=== PATIENT | female | born 1965 | race Caucasian/White ===

== ENCOUNTER → 2017-02-26 09:13 | Outpatient (CLI) | payer OTHER ==
[2015-05-18 16:42] VITALS: BMI 53.5
[~2017-02-26 09:13] MED LIST: ALDACTONE50 MG PO; ATROVENT 0.03%30 ML NS; BAYER ASPIRIN325 MG PO; BAYER CHEWABLE81 MG PO; BENZONATATE200 MG PO; CALCIUM 600+D T1 TA1 PO; COUMADIN5 MG PO; DIOVAN HCT 320/1 TA2 PO; FLUTICASONE PRO16 GM NASAL; IPRAT-ALBUT 0.5-3 ML INH; LACTINEX GRANUL1 PCK PO; LOVAZA1 G PO; LOVENOX30 MG/0.3 SQ; LYRICA100 MG PO; MUCINEX DM ER1 EAC1 PO; MULTI-DAY VITAM1 TAB PO; OXYCONTIN10 MG PO; PERCOCET 10/3251 TA1 PO; PERFOROMIS20 MCG/21 UPD; PREDNISONE20 MG PO; PROVIGIL200 MG PO; PULMICORT0.5 MG/21 UPD; ROBAXIN-750750 MG PO; SINGULAIR10 MG PO; SYNTHROID112 MCG PO; SYNTHROID125 MCG PO; SYNTHROID300 MCG PO; TRIGLIDE160 MG PO; VIBRAMYCIN 100100 MG PO
== END | disposition home or self-care (01) ==
LOC: D.RAD 09:13
DX: J45.909 Unspecified asthma, uncomplicated (principal)

== ENCOUNTER → 2017-08-27 13:27 | Outpatient (CLI) | payer OTHER ==
[2015-05-18 16:42] VITALS: BMI 53.5
== END | disposition home or self-care (01) ==
LOC: D.RT 13:27
DX: J45.909 Unspecified asthma, uncomplicated (principal)

== ENCOUNTER → 2018-07-03 19:14 | Outpatient (CLI) | payer OTHER ==
[2015-05-18 16:42] VITALS: BMI 53.5
== END | disposition home or self-care (01) ==
LOC: D.MAMMO 11:30
DX: Z12.31 Encounter for screening mammogram for malignant neoplasm of breast (principal)

== ENCOUNTER → 2018-07-31 16:37 | Outpatient (CLI) | payer OTHER ==
[2015-05-18 16:42] VITALS: BMI 53.5
== END | disposition home or self-care (01) ==
LOC: D.MAMMO 09:30 → D.US 08-01 11:00 → D.MAMMO 08-05 08:30
DX: R92.8 Other abnormal and inconclusive findings on diagnostic imaging of breast (principal)

== ENCOUNTER → 2018-11-28 09:36 | Outpatient (CLI) | payer OTHER ==
[2015-05-18 16:42] VITALS: BMI 53.5
== END | disposition home or self-care (01) ==
LOC: D.RT 09:36
DX: J45.909 Unspecified asthma, uncomplicated (principal); J84.9 Interstitial pulmonary disease, unspecified

== ENCOUNTER → 2019-01-02 23:51 | Outpatient (CLI) | payer OTHER ==
[2015-05-18 16:42] VITALS: BMI 53.5
== END | disposition home or self-care (01) ==
LOC: D.MAMMO 15:00
PROVIDERS: ATTEND Family Medicine
DX: R92.8 Other abnormal and inconclusive findings on diagnostic imaging of breast (principal)

== ENCOUNTER 2020-04-14 16:40 | Inpatient (IN) | payer MEDICARE, OTHER ==
[~2020-04-14] VITALS: Ht 165.1 cm; Wt 136.1 kg
[2020-06-15] MEDS ORDERED: SYNTHROID300 MCG PO (15:39)
[2020-06-15] MEDS ORDERED: MOBIC7.5 MG PO (15:40)
[2020-06-15] MEDS ORDERED: OXYBUTYNIN CHLOR5 MG PO (15:41)
[2020-06-15] MEDS ORDERED: VITAMIN D3 PO (15:41)
[2020-06-15] MEDS ORDERED: BENADRYL25 MG PO (15:42)
[2020-06-16 10:17] LABS: BASOPHILS 0.3 % (0-2); EOSINOPHILS 2.6 % (0-7); HEMATOCRIT 42.3 % (36.0-48.0); HEMOGLOBIN 13.8 g/dL (12-16); IMMATURE GRANULOCYTES 0.5 % (0-5); LYMPHOCYTES 32.9 % (15-50); MCH 28.5 pg (26.0-34.0); MCHC 32.6 g/dL (31.0-37.0); MCV 87.4 fL (80.0-100.0); MONOCYTES 7.7 % (2-11); RBC 4.84 10x6/uL (4.00-5.40); RDW 14.3 % (11.5-14.5); WBC 5.9 10x3/uL (4.8-10.8)
[2020-06-16 10:23] LABS: PLATELET COUNT 249 10x3/uL (130-400)
[2020-06-16 10:24] LABS: ANION GAP 11.2 mmol/L (8-16); APTT 29.1 SECONDS (22.8-39.4); CALCIUM 10.2 mg/dL (8.5-10.1); CARBON DIOXIDE 29.2 mmol/L (21.0-32.0); CREATININE - SERUM 0.9 mg/dL (0.6-1.3); INR 0.98 (0.85-1.17); POTASSIUM - SERUM 4.4 mmol/L (3.5-5.1)
[2020-06-16 13:08] LABS: BILIRUBIN NEGATIVE (NEGATIVE); KETONE NEGATIVE (NEGATIVE); NITRITE POSITIVE (NEGATIVE); UROBILINOGEN NORMAL (NORMAL)
[2020-06-16 13:09] LABS: BACTERIA MANY /hpf (NEGATIVE); EPITHELIAL CELLS OCC /hpf (0-5); RED CELLS - URINE RARE /hpf (0-5)
[2020-06-22] VITALS (11 sets, daily range): BP systolic 96–132; BP diastolic 50–74; BMI 48.6; BMI 50.0
[2020-06-22 08:52] LABS: BILIRUBIN NEGATIVE (NEGATIVE); KETONE NEGATIVE (NEGATIVE); NITRITE NEGATIVE (NEGATIVE); UROBILINOGEN NORMAL (NORMAL)
--- NOTE | 2020-06-22 09:33 | NUR ---
NERVE BLOCK WITH SEDATION COMPLETED BY ANESTHESIA. PATIENT IN BED WITH HOB UP TO 45 DEGREES, AWAKE, DROWSY, SPOUSE AT BEDSIDE, VSS. BP 102/53, HR 62, RR 15, O2 SAT 98%
--- NOTE | 2020-06-22 10:26 | NUR ---
THROUGH TRAFFIC KEPT TO A MINIMUM. HIBACLENS AND ALCOHOL USED TO CLEAN BEFORE PREPPING. STERILE GOWNED AND GLOVED TO CHLORAPREP.
--- NOTE | 2020-06-22 12:32 | MORECARE ---
CASE MANAGEMENT DISCHARGE SUMMARY PATIENT: MAGAN MANNING UNIT: [id number] ADM DATE: 06/22/20 AGE: 54 : [birth year] SEX: F ROOM/BED: D.1209 AUTHOR: NANDO KOENIG PHYSICIAN: REFERRING PHYSICIAN: YUMI GUZMAN DO DATE OF SERVICE: 06/22/20 Discharge Plan Patient Name: MAGAN MANNING Facility: [facility]:[place] : 1965 Planned Disposition: Anticipated Discharge Date: Discharge Date: Expected LOS: Initial Reviewer: [email or web address] Initial Review Date: 06/22/2020 Generated: 06/22/20 1:31 pm Patient Name: MAGAN MANNING Page 17509 at 1232 All edits/amendments must be made on the electronic document DICTATION DATE: 06/22/20 1231 BLACK AND WHITE PRINTER OPERATOR: DEVIKA 06/22/20 1231 RPT#: [id number] DC DATE: STATUS: ADM IN [facility] [address] [place] [address] END OF REPORT
--- NOTE | 2020-06-22 12:39 | MORECARE ---
CASE MANAGEMENT DISCHARGE SUMMARY PATIENT: MAGAN MANNING UNIT: [id number] ADM DATE: 06/22/20 AGE: 54 : [birth year] SEX: F ROOM/BED: D.1209 AUTHOR: NANDO KOENIG PHYSICIAN: REFERRING PHYSICIAN: YUMI GUZMAN DO DATE OF SERVICE: 06/22/20 Discharge Plan Patient Name: MAGAN MANNING Facility: [facility]:[place] : 1965 Planned Disposition: Anticipated Discharge Date: Discharge Date: Expected LOS: Initial Reviewer: [email or web address] Initial Review Date: 06/22/2020 Generated: 06/22/20 1:38 pm Last DP export: 06/22/20 11:31 a Patient Name: MAGAN MANNING Page 48501 at 1239 All edits/amendments must be made on the electronic document DICTATION DATE: 06/22/20 1238 SOCIAL SERVICES: DEVIKA 06/22/20 1238 RPT#: [id number] DC DATE: STATUS: ADM IN [facility] [address] [place] [address] END OF REPORT
--- NOTE | 2020-06-22 12:45 | NUR ---
RECEIVED TO ROOM 1209 VIA BED FROM PACU. A/O X3. IN ROOM. DRESSING TO RIGHT KNEE IS DRY AND INTACT WITH PROVENA IN PLACE. NO DRAINAGE NOTED. DENIES NEEDS.
--- NOTE | 2020-06-22 13:30 | NUR ---
C/O SOME NAUSEA. GIVEN ICE CHIPS TO HELP. WILL MONITOR.
--- NOTE | 2020-06-22 14:12 | NUR ---
C/O SOME NAUSEA AT THIS TIME. GIVEN 4MG ZOFRAN SLOW IVP FOR SAME. WILL MONITOR.
--- NOTE | 2020-06-22 15:53 | NUR ---
REQUESTED AND GIVEN 10MG OXY WITH 50MG VISTARIL PO FOR C/O RIGHT KNEE PAIN LEVEL 8. WILL MONITOR.
--- NOTE | 2020-06-22 16:59 | MORECARE ---
CASE MANAGEMENT DISCHARGE SUMMARY PATIENT: MAGAN MANNING UNIT: [id number] ADM DATE: 06/22/20 AGE: 54 : [birth year] SEX: F ROOM/BED: D.1209 AUTHOR: NANDO KOENIG PHYSICIAN: REFERRING PHYSICIAN: YUMI GUZMAN DO DATE OF SERVICE: 06/22/20 Discharge Plan Patient Name: MAGAN MANNING Facility: [facility]:[place] : 1965 Planned Disposition: Anticipated Discharge Date: Discharge Date: Expected LOS: Initial Reviewer: [email or web address] Initial Review Date: 06/22/2020 Generated: 06/22/20 5:58 pm Last DP export: 06/22/20 11:39 a Patient Name: MAGAN MANNING Page 63034 at 1658 All edits/amendments must be made on the electronic document DICTATION DATE: 06/22/201657 FREIGHT WEIGHER: DEVIKA 06/22/201657 RPT#: [id number] DC DATE: STATUS: ADM IN [facility] [address] [place] [address] END OF REPORT
--- NOTE | 2020-06-22 17:49 | MORECARE ---
CASE MANAGEMENT DISCHARGE SUMMARY PATIENT: MAGAN KRUEGER UNIT: [id number] ADM DATE: 06/22/20 AGE: 54 : 69 SEX: F ROOM/BED: D.1209 AUTHOR: NANDO KOENIG PHYSICIAN: REFERRING PHYSICIAN: YUMI GUZMAN DO DATE OF SERVICE: 06/22/20 Discharge Plan Patient Name: MAGAN KRUEGER Facility: [facility]:[place] : 1965 Planned Disposition: Home Health Service Anticipated Discharge Date: 06/24/20 Discharge Date: Expected LOS: 2 Initial Reviewer: [email or web address] Initial Review Date: 06/22/2020 Generated: 06/22/20 6:48 pm DCP- Discharge Planning Updated by [email or web address]: Latricia Stewart on 06/22/20 4:[address] cm met with patient for DC planning/needs. Drowsy, but in agreement with evaluation.. Patient states she lives independently with her , Robb krueger ([phone]). PCP: Dr. Nunn. Pharmacy: [facility]. DME: RW (2 wheeled), built-in shower bench, glucometer, C-Pap. Patient states she DID NOT want the CPM and does not need the BSC. CM discussed HHS, Rehab, OP Therapy. Patient states she would like to have HHS, but is unable, at this time to choose one. CM will revisit 06/23 for determination of name of HHS. CM will assist PRN with DC needs. Last DP export: 06/22/20 3:59 p Patient Name: MAGAN RKUEGER Page 19601 at 1749 All edits/amendments must be made on the electronic document DICTATION DATE: 06/22/201747 EMPLOYEE TRAINING SPECIALIST: DEVIKA 06/22/201747 RPT#: [id number] DC DATE: STATUS: ADM IN [facility] [address] [place] [address] END OF REPORT
--- NOTE | 2020-06-22 17:56 | MORECARE ---
CASE MANAGEMENT DISCHARGE SUMMARY PATIENT: MAGAN LORENZ UNIT: [id number] ADM DATE: 06/22/20 AGE: 54 : 69 SEX: F ROOM/BED: D.1209 AUTHOR: NANDO KOENIG PHYSICIAN: REFERRING PHYSICIAN: YUMI GUZMAN DO DATE OF SERVICE: 06/22/20 Discharge Plan Patient Name: MAGAN LORENZ Facility: [facility]:[place] : 1965 Planned Disposition: Home Health Service Anticipated Discharge Date: 06/24/20 Discharge Date: Expected LOS: 2 Initial Reviewer: [email or web address] Initial Review Date: 06/22/2020 Generated: 06/22/20 6:55 pm DCP- Discharge Planning Updated by [email or web address]: Latricia Stewart on 06/22/20 4:[address] CM met with patient for DC planning/needs. Drowsy, but in agreement with evaluation.. Patient states she lives independently with her , Robb Lorenz ([phone]). PCP: Dr. Nunn. Pharmacy: [facility]. DME: RW (2 wheeled), built-in shower bench, glucometer, C-Pap. Patient states she DID NOT want the CPM and does not need the BSC. CM discussed HHS, Rehab, OP Therapy. Patient states she would like to have HHS, but is unable, at this time to choose one. CM will revisit 06/23 for determination of name of HHS and arrange start date. CM will assist PRN with DC needs. DCPIA - Discharge Planning Initial Assessment Updated by [email or web address]: Latricia Stewart on 06/22/20 5:54 pm * Is the patient Alert and Oriented? No * PCP Dr. Nunn * Pharmacy [facility] * Preadmission Environment Home with Family * ADLs Independent * Equipment CPAP Glucometer * Other Equipment RW )2 wheels) build-in shower bench, glucometer * List name and contact numbers for known caregivers / representatives who currently or will assist patient after discharge: Robb Lorenz (spouse) [phone] * Verbal permission to speak to the caregivers and representatives has been obtained from the patient. Yes * Community resources currently utilized None * Please name any agencies selected above. HHS pending choice * Additional services required to return to the preadmission environment? Yes * Can the patient safely return to the preadmission environment? Yes * Has this patient been hospitalized within the prior 30 days at any hospital? No Last DP export: 06/22/20 4:49 p Patient Name: MAGAN LORENZ Page 40088 at 1756 All edits/amendments must be made on the electronic document DICTATION DATE: 06/22/201754 TAPING SUPERVISOR: DEVIKA 06/22/201754 RPT#: [id number] DC DATE: STATUS: ADM IN [facility] [address] [place] [address] END OF REPORT
--- NOTE | 2020-06-22 19:06 | NUR ---
PATIENT REFUSED CPM.
--- NOTE | 2020-06-22 20:00 | NUR ---
ALERT RESTING IN BED, REPORTS PAIN OF ABOUT 3, DENIES NEEDS SEE SHIFT ASSESSMENT, CALL LIGHT IN REACH
[2020-06-23 00:08] VITALS: BP 104/55
[2020-06-23 04:46] VITALS: BP 127/72
--- NOTE | 2020-06-23 05:10 | NUR ---
REFUSED CPM THIS AM STATES I WANT TO TALK TO DR GUZMAN I THINK IT POPPED A STICH LAST NIGHT FELT LIKE IT WENT BACK TOO FAR
[2020-06-23 06:20] LABS: BASOPHILS 0.2 % (0-2); EOSINOPHILS 1.3 % (0-7); IMMATURE GRANULOCYTES 0.4 % (0-5); LYMPHOCYTES 20.3 % (15-50); MCH 27.7 pg (26.0-34.0); MCHC 31.4 g/dL (31.0-37.0); MCV 88.2 fL (80.0-100.0); MEAN PLATELET VOLUME 10.4 fL (7.4-10.4); MONOCYTES 9.9 % (2-11); NEUTROPHILS 67.9 % (40-80); PLATELET COUNT 226 10x3/uL (130-400); RBC 3.97 10x6/uL (4.00-5.40); RDW 14.4 % (11.5-14.5); WBC 8.4 10x3/uL (4.8-10.8)
[2020-06-23 06:39] LABS: ANION GAP 10.7 mmol/L (8-16); CALCIUM 9.1 mg/dL (8.5-10.1); CARBON DIOXIDE 27.1 mmol/L (21.0-32.0); CREATININE - SERUM 1.1 mg/dL (0.6-1.3); MAGNESIUM - SERUM 1.2 mg/dL (1.8-2.4); PHOSPHOROUS 3.6 mg/dL (2.5-4.9); POTASSIUM - SERUM 3.8 mmol/L (3.5-5.1)
[2020-06-23 08:00] VITALS: BP 120/58
--- NOTE | 2020-06-23 08:00 | OP ---
PATIENT NAME: MAGAN LORENZ MEDICAL RECORD: [id number] :69 LOCATION:D. D.1209 ADMISSION DATE:06/22/20 SURGEON: SREE GUZMAN DO DATE OF OPERATION: 06/22/2020 PROCEDURE PERFORMED: Right total knee arthroplasty. PREOPERATIVE DIAGNOSIS: Right knee osteoarthritis. POSTOPERATIVE DIAGNOSIS: Right knee osteoarthritis. INDICATIONS: Ms. Lorenz is a 54-year-old female who has had right knee osteoarthritis for quite some time. She tried all manner of nonoperative treatments to no avail. This just started affecting her activities of daily living and is aware of the risks due to her BMI, increased risk for infection, bleeding, failure of implant, continued pain, blood clots, damage to nerves and vessels in the area, need for further surgery, and even and she signed the consent. SURGEON: Sree Guzman DO DESCRIPTION OF PROCEDURE: The patient was given block by anesthesia. Preoperative antibiotics were given 3 grams Ancef and 80 mg gentamicin preoperatively and a gram of TXA. She was taken to the operative suite, laid in supine position, given general anesthetic and LMA was placed. The right lower extremity was then prepped and draped in sterile fashion. A timeout was performed; everyone was in agreement with the correct side, site, patient and procedure. I then began by marking out the incision of the anterior knee, covered in Ioban. I made an incision with a #10 blade scalpel. Careful dissection down to the capsule. Then, using a fresh 10 blade, the medial parapatellar approach. The patella was then everted and milled down and part of fat pad was removed. I then took out the ACL and entered the femoral canal with the knee flexed and then brought in the distal femoral cutting guide and cut the distal femur through the intramedullary guide after it was pinned into place and the guide was removed. I cut through the block. I then exposed the proximal tibia and cut it through a guide. I then brought the knee to extension, removed the menisci and the extension block fit well. I then removed the pins from the cutting block and then flexed the knee up and sized the femur to be 65. A 4-in-1 cutting block was then put on the knee joint and used to ensure there was no notching. Once that was completed, the distal femur was cut through the 4-in-1 cutting block. The 4-in-1 cutting block was used and the femur was cut through the block. I then placed the 65 trial on and impacted on and then floated in the tibia with a 10 poly. I marked the rotation. We then removed that tibial tray and drilled for the patella as 28 size and then the lug holes for the femur and then removed the femoral trial. Once the femoral trial was removed, I exposed the tibia and sized to be a 67, reamed and punched it and put extra holes in the tibia for the cement. Cement was then mixed. The tibia and femur were irrigated. Once the cement was mixed and placed into the tibia and on the implant, I then impacted the implant on and removed excess cement from the tibia and then impacted the femur on, brought the knee to an extension with a 10 poly in between, exposed the patella. After cleaning off the patella, put the cement on the patella and on the implant. Screws then place, removed excess cement. I then put in the 10% povidine iodine with 500 mL normal saline solution and let sit for 3 minutes. Once the cement had dried, I irrigated out that solution and trialled up to a 14 poly; 14 poly fit the best in flexion and OPERATIVE REPORT [id number] MAGAN LORENZ extension and then put in the 14 E-poly anterior stabilized poly and locked it into place. I then irrigated one more time and put in the Niru and vancomycin and tobramycin powder and then myself and Ren Samaniego, certified surgical wheelchair van operator first responder closed the capsule with #1 Vicryl in a zffwyc-fv-wzzqr fashion and Ren Samaniego then closed the skin with 2-0 Vicryl inverted fashion and placed a ZipLine on the knee and then put the Prevena Restore on. She did ooze a little bit. She was given a gram of TXA prior to closure. Then, the Restore was put on. She was then awakened and taken to recovery in stable condition. Blood loss approximately 400 mL. COMPLICATIONS: None. TRANSINT:[id number] Voice Confirmation ID: [id number] DOCUMENT ID: [id number] SREE GUZMAN DO at 0800 CC: [id number] DICTATION DATE: 06/22/20 111 REHAB SERVICES AIDE: 06/22/202021 ADM IN [facility] [address] [place] [address]
[2020-06-23 10:19] VITALS: Ht 165.1 cm; Wt 136.1 kg
--- NOTE | 2020-06-23 10:40 | NUR ---
ASSESSMENT PER FLOW SHEET. PATIENT IS WITHOUT DISTRESS.DENIES PAIN AT PRESENT.DRESSING RIGHT KNEE CDI. HAS BEEN UP TO CHAIR THIS AM FOR ABOUT 2 HOURS. BESS REMOVED FROM LLE IT WAS TIGHT ON ANKLE AND LEFT SOME RED ALEXANDER. CALL LIGHT IN REACH
--- NOTE | 2020-06-23 11:40 | NUR ---
PAIN MEDS ORDERED FOR PAIN 10/10 TO LEFT KNEE.
[2020-06-23 12:00] VITALS: BP 107/54
[2020-06-23 16:00] VITALS: BP 111/56
--- NOTE | 2020-06-23 17:09 | NUR ---
HAS BEEN UP MANY TIMES TO BSC. HAS AMBULATED TWO TIMES WITH PT.SHE HAS SET IN CHAIR A FEW HOURS. REMAINS WITHOUT CHANGE.CONT PLAN OF CARE
[2020-06-23 20:00] VITALS: BP 103/54
[2020-06-24 04:00] VITALS: BP 111/55
[2020-06-24 06:41] LABS: BASOPHILS 0.3 % (0-2); EOSINOPHILS 1.8 % (0-7); HEMATOCRIT 33.2 % (36.0-48.0); HEMOGLOBIN 10.7 g/dL (12-16); IMMATURE GRANULOCYTES 0.3 % (0-5); LYMPHOCYTES 26.6 % (15-50); MCH 28.5 pg (26.0-34.0); MCHC 32.2 g/dL (31.0-37.0); MCV 88.3 fL (80.0-100.0); MONOCYTES 11.9 % (2-11); NEUTROPHILS 59.1 % (40-80); PLATELET COUNT 225 10x3/uL (130-400); RBC 3.76 10x6/uL (4.00-5.40); RDW 14.4 % (11.5-14.5); WBC 7.8 10x3/uL (4.8-10.8)
[2020-06-24 06:55] LABS: ANION GAP 10.7 mmol/L (8-16); CALCIUM 8.6 mg/dL (8.5-10.1); CARBON DIOXIDE 29.3 mmol/L (21.0-32.0); MAGNESIUM - SERUM 1.3 mg/dL (1.8-2.4); PHOSPHOROUS 3.3 mg/dL (2.5-4.9)
[2020-06-24 07:30] VITALS: BP 85/45
--- NOTE | 2020-06-24 07:30 | NUR ---
PT IS RESTING IN BED WITH EYES OPEN. RESPIRATIONS ARE EVEN AND UNLABORED. PT IS AAOX 4. PT DENIES PRESENCE OF PAIN/N/V AT THIS TIME. DRESSING TO RIGHT KNEE NOTED AND IS CDI. WOUND VAC TO RIGHT KNEE NOTED AND WITHOUT COMPROMISE. PT DENIES PRESENCE OF NUMBNESS/TINGLING TO BLE. CAP REFILL TO BLE IS < 3 SEC. BILATERAL PEDAL PULSES PALP. INCENTIVE SPIROMETER AT BEDSIDE AND ENCOURAGED. TCDB ENCOURAGED. PT WITH HYPOTENSION AND STATES "THATS PRETTY NORMAL FOR ME. VICKIE BEEN RESTING AND MY BLOOD PRESSURE USUALLY WILL BE LOW WHEN I AM RESTING". BED IS IN THE LOWEST POSITION. CALL LIGHT AND BEDSIDE TABLE ARE WITHIN REACH. SIDE RAILS X 2. PT DENIES FURTHER NEEDS. WILL CONT TO MONITOR.
[2020-06-24] MEDS ORDERED: ELIQUIS2.5 MG PO (08:36)
[2020-06-24] MEDS ORDERED: ZOFRAN ODT4 MG/UDTAB PO (08:37)
[2020-06-24] MEDS ORDERED: VISTARIL50 MG PO (08:37)
[2020-06-24] MEDS ORDERED: oxyCODONE IR PO (08:37)
[2020-06-24] MEDS ORDERED: KEFLEX500 MG PO (08:38)
[2020-06-24 10:29] VITALS: BP 109/42
--- NOTE | 2020-06-24 11:42 | MORECARE ---
CASE MANAGEMENT DISCHARGE SUMMARY PATIENT: MAGAN LORENZ UNIT: [id number] ADM DATE: 06/22/20 AGE: 54 : 69 SEX: F ROOM/BED: D.1209 AUTHOR: NANDO KOENIG PHYSICIAN: REFERRING PHYSICIAN: YUMI GUZMAN DO DATE OF SERVICE: 06/24/20 Discharge Plan Patient Name: MAGAN LORENZ Facility: [facility]:[place] : 1965 Planned Disposition: Home Health Service Anticipated Discharge Date: 06/24/20 Discharge Date: Expected LOS: 2 Initial Reviewer: [email or web address] Initial Review Date: 06/22/2020 Generated: 06/24/20 12:42 pm DCP- Discharge Planning Updated by [email or web address]: Latricia Stewart on 06/22/20 4:[address] CM met with patient for DC planning/needs. Drowsy, but in agreement with evaluation.. Patient states she lives independently with her , Robb Lorenz ([phone]). PCP: Dr. Nunn. Pharmacy: [email or web address]. DME: RW (2 wheeled), built-in shower bench, glucometer, C-Pap. Patient states she DID NOT want the CPM and does not need the BSC. CM discussed HHS, Rehab, OP Therapy. Patient states she would like to have HHS, but is unable, at this time to choose one. CM will revisit 06/23 for determination of name of HHS and arrange start date. CM will assist PRN with DC needs. DCPIA - Discharge Planning Initial Assessment Updated by [email or web address]: Latricia Stewart on 06/22/20 5:54 pm * Is the patient Alert and Oriented? No * PCP Dr. Nunn * Pharmacy [facility] * Preadmission Environment Home with Family * ADLs Independent * Equipment CPAP Glucometer * Other Equipment RW )2 wheels) build-in shower bench, glucometer * List name and contact numbers for known caregivers / representatives who currently or will assist patient after discharge: Robb Lorenz (spouse) [phone] * Verbal permission to speak to the caregivers and representatives has been obtained from the patient. Yes * Community resources currently utilized None * Please name any agencies selected above. HHS pending choice * Additional services required to return to the preadmission environment? Yes * Can the patient safely return to the preadmission environment? Yes * Has this patient been hospitalized within the prior 30 days at any hospital? No External Providers External Provider: [facility] Next Contact Date: Service Request Date: Service Type: Resolution: Reviewer: Comments: Last DP export: 06/22/20 4:56 p Patient Name: MAGAN LORENZ Page 15615 at 1142 All edits/amendments must be made on the electronic document DICTATION DATE: 06/24/20 1142 PLASTERING CONTRACTOR: DEVIKA 06/24/20 1142 RPT#: [id number] DC DATE: STATUS: ADM IN [facility] [address] [place] [address] END OF REPORT
--- NOTE | 2020-06-24 12:20 | NUR ---
ALL DISCHARGE INSTRUCTIONS COVERED WITH PT. PT DENIES FURTHER QUESTIONS/CONCERNS AT THIS TIME. EXTRA DRESSINGS GIVEN TO PT PER REQUEST FROM DR GUZMAN. PIV TO LEFT FA REMOVED WITH CATHETER TIP INTACT. DRESSING APPLIED. ALL DISCHARGE PAPERS SIGNED. (1) PRINTED RX GIVEN TO PT. PT DENIES FURTHER QUESTIONS/CONCERNS/NEEDS. PT ASSISTED TO WHEELCHAIR AND ESCORTED FROM ROOM TO TRANSPORTATION HOME. PT THANKS THIS NURSE FOR CARE GIVEN DURING THIS SHIFT AND STATES THAT ALL PERSONAL BELONGINGS ARE WITH PT. ALL SIGNED DC PAPERS PLACED IN PT CHART.
--- NOTE | 2020-06-25 14:47 | MORECARE ---
CASE MANAGEMENT DISCHARGE SUMMARY PATIENT: MAGAN LORENZ UNIT: [id number] ADM DATE: 06/22/20 AGE: 54 : 69 SEX: F ROOM/BED: D.1209 AUTHOR: LIBERTY,NANDO PHYSICIAN: REFERRING PHYSICIAN: YUMI GUZMAN DO DATE OF SERVICE: 06/25/20 Discharge Plan Patient Name: MAGAN LORENZ Facility: [facility]:[place] : 1965 Planned Disposition: Home Health Service Anticipated Discharge Date: 06/24/20 Discharge Date: 06/24/2020 Expected LOS: 2 Initial Reviewer: [email or web address] Initial Review Date: 06/22/2020 Generated: 06/25/20 3:46 pm DCP- Discharge Planning Updated by [email or web address]: Latricia Stewart on 06/22/20 4:[address] CM met with patient for DC planning/needs. Drowsy, but in agreement with evaluation.. Patient states she lives independently with her , Robb Lorenz ([phone]). PCP: Dr. Nunn. Pharmacy: [facility]. DME: RW (2 wheeled), built-in shower bench, glucometer, C-Pap. Patient states she DID NOT want the CPM and does not need the BSC. CM discussed HHS, Rehab, OP Therapy. Patient states she would like to have HHS, but is unable, at this time to choose one. CM will revisit 06/23 for determination of name of HHS and arrange start date. CM will assist PRN with DC needs. DCPIA - Discharge Planning Initial Assessment Updated by [email or web address]: Latricia Stewart on 06/22/20 5:54 pm * Is the patient Alert and Oriented? No * PCP Dr. Nunn * Pharmacy [facility] * Preadmission Environment Home with Family * ADLs Independent * Equipment CPAP Glucometer * Other Equipment RW )2 wheels) build-in shower bench, glucometer * List name and contact numbers for known caregivers / representatives who currently or will assist patient after discharge: Robb Lorenz (spouse) [phone] * Verbal permission to speak to the caregivers and representatives has been obtained from the patient. Yes * Community resources currently utilized None * Please name any agencies selected above. HHS pending choice * Additional services required to return to the preadmission environment? Yes * Can the patient safely return to the preadmission environment? Yes * Has this patient been hospitalized within the prior 30 days at any hospital? No Last DP export: 06/24/20 10:42 a Patient Name: MAGAN LORENZ Page [id number] at 1447 All edits/amendments must be made on the electronic document DICTATION DATE: 06/25/206 PHONOGRAPH CARTRIDGE ASSEMBLER: DEVIKA 06/25/206 RPT#: [id number] DC DATE:06/24/20 STATUS: DIS IN [facility] [address] [place] [address] END OF REPORT
== END 2020-06-24 12:39 | disposition home or self-care (01) | DRG 470 ==
LOC: D.SDCHOLD 05-19 09:30 → D.M3 06-22 07:45 → D.SDCHOLD 06-22 09:30 → D.M3 06-22 11:47
PROVIDERS: Family Medicine; ADMIT Orthopaedic Surgery; ATTEND Orthopaedic Surgery
PROC: 0SRC0J9 Replacement of Right Knee Joint with Synthetic Substitute, Cemented, Open Approach (ICD-10-PCS; principal; 2020-06-22 09:30)
DX: M17.11 Unilateral primary osteoarthritis, right knee (principal); E11.9 Type 2 diabetes mellitus without complications; E78.5 Hyperlipidemia, unspecified; I10 Essential (primary) hypertension; E03.9 Hypothyroidism, unspecified

== ENCOUNTER → 2020-04-14 18:19 | Outpatient (CLI) | payer OTHER ==
[2015-05-18 16:42] VITALS: BMI 53.5
== END | disposition home or self-care (01) ==
LOC: D.LABREF 18:19
PROVIDERS: ATTEND Orthopaedic Surgery
DX: M17.11 Unilateral primary osteoarthritis, right knee (principal)

== ENCOUNTER 2021-02-15 08:45 | Outpatient (CLI) | payer MEDICARE, OTHER ==
[2020-06-23 10:19] VITALS: BMI 49.9
[~2021-02-15 08:45] MED LIST changes: +BENADRYL25 MG PO; +ELIQUIS2.5 MG PO; +KEFLEX500 MG PO; +MOBIC7.5 MG PO; +OXYBUTYNIN CHLOR5 MG PO; +VISTARIL50 MG PO; +VITAMIN D3 PO; +ZOFRAN ODT4 MG/UDTAB PO; +oxyCODONE IR PO
== END 2021-02-15 23:59 | disposition home or self-care (01) ==
LOC: D.MAMMO 08:45
PROVIDERS: ATTEND Emergency Medicine
DX: Z12.31 Encounter for screening mammogram for malignant neoplasm of breast (principal)

== ENCOUNTER → 2021-02-16 08:24 | Outpatient (CLI) | payer MEDICARE, OTHER ==
[2020-06-23 10:19] VITALS: BMI 49.9
== END | disposition home or self-care (01) ==
LOC: D.LAB 08:24
PROVIDERS: ATTEND Internal Medicine Pulmonary Disease
DX: Z11.52 Encounter for screening for COVID-19 (principal)

== ENCOUNTER → 2021-02-21 08:30 | Outpatient (CLI) | payer MEDICARE, OTHER ==
[2020-06-23 10:19] VITALS: BMI 49.9
== END | disposition home or self-care (01) ==
LOC: D.RT 08:30
PROVIDERS: ATTEND Internal Medicine Pulmonary Disease
DX: J45.909 Unspecified asthma, uncomplicated (principal); Z11.52 Encounter for screening for COVID-19